=== PATIENT | male | born 1940 | race Caucasian/White ===

== ENCOUNTER 2017-09-12 07:50 | Inpatient (IN) | payer MEDICARE, MEDICAID ==
[2017-09-12] VITALS (11 sets, daily range): BP systolic 112–142; BP diastolic 58–119
[~2017-09-12] VITALS: Ht 180.3 cm; Wt 108.8 kg
[~2017-09-12 07:50] MED LIST: BUPR100T13 PO; CLON-528 PO; CYAN50003 SUBCUT; DABI150C PO; DOCU100C40 PO; FLO0.4C PO; LEVO175T2 PO; MULT-570 PO; [UNRECOGNIZED DRUG - CODE] PO
[2017-09-12 08:37] LABS: BASOPHILS % (AUTO) 0.6 % (0-1); EOSINOPHILS # (AUTO) 0.2 X10'3 (0-0.9); EOSINOPHILS % (AUTO) 2.6 % (0-6); HEMATOCRIT 49.4 % (42.0-52.0); HEMOGLOBIN 17.1 g/dl (14.0-17.9); LYMPHOCYTES # (AUTO) 0.8 X10'3 (1.1-4.8); LYMPHOCYTES % (AUTO) 12.5 % (21-51); MEAN CORPUSCULAR HEMOGLOBIN 33.1 PG (27.0-31.0); MEAN CORPUSCULAR HGB CONC 34.6 % (33.0-36.5); MEAN CORPUSCULAR VOLUME 95.6 FL (78-98); MEAN PLATELET VOLUME 7.3 FL (7.4-10.4); MONOCYTES # (AUTO) 0.5 X10'3 (0-0.9); MONOCYTES % (AUTO) 8.2 % (2-12); NEUTROPHILS % (AUTO) 76.1 % (42-75); PLATELET COUNT 147 X10'3 (140-440); RED BLOOD COUNT 5.17 X10'6 (4.70-6.10); RED CELL DISTRIBUTION WIDTH 15.9 % (11.5-14.5); WHITE BLOOD COUNT 6.6 X10'3 (4.5-11.0)
[2017-09-12] MEDS: nitroGLYCERIN 0.4mg SUBLingual tab SL PRN ×2 (08:38→09:11)
[2017-09-12 08:47] LABS: INR 1.4 INR; PARTIAL THROMBOPLASTIN TIME 35 SECONDS (22-32)
[2017-09-12 08:52] LABS: ALANINE AMINOTRANSFERASE 35 U/L (12-78); ALBUMIN 3.6 G/DL (3.4-5.0); ALBUMIN/GLOBULIN RATIO 1.1 (1.1-1.5); ALKALINE PHOSPHATASE 82 IU/L (46-116); ANION GAP 12 (8-16); ASPARTATE AMINO TRANSFERASE 27 U/L (10-37); BILIRUBIN,TOTAL 1.8 MG/DL (0.1-1.0); BLOOD UREA NITROGEN 13 MG/DL (7-18); BUN/CREATININE RATIO 10.9 (5.4-32.0); CALCIUM 8.2 MG/DL (8.5-10.1); CHLORIDE 103 MMOL/L (99-107); CREATININE 1.19 MG/DL (0.60-1.10); GLUCOSE 160 MG/DL (70-104); SODIUM 138 MMOL/L (135-145); TOTAL PROTEIN 6.8 G/DL (6.4-8.2); eGFR 59 ML/MIN
[2017-09-12] MEDS ORDERED: SILD100T PO (09:20)
[2017-09-12] MEDS ORDERED: OLME5TAB3 PO (09:20)
[2017-09-12] MEDS ORDERED: RIVA20TA PO (09:20)
[2017-09-12] MEDS ORDERED: CHOL200013 (09:20)
[2017-09-12] MEDS ORDERED: DOXA4TAB3 PO (09:20)
[2017-09-12] MEDS ORDERED: HYDROmorphone inj. 0.5 MG/0.5 ML DISP.SYRIN IV PRN ×2 (10:00)
[2017-09-12] MEDS ORDERED: morphine 4 MG/ML inj SYRINge IV PRN ×2 (10:00)
[2017-09-12] MEDS ORDERED: metoclopramide 5 mg/ml inj IV PRN (10:00)
[2017-09-12] MEDS ORDERED: docusate sod 100mg capsule PO PRN (10:00)
[2017-09-12] MEDS ORDERED: acetaminophen 325mg tablet PO PRN ×2 (10:00)
[2017-09-12] MEDS ORDERED: diphenhydrAMINE 25mg capsule PO PRN (10:00)
[2017-09-12] MEDS ORDERED: mag hydrox/Alum hydrox/simeth 30ml oral suspension PO PRN (10:00)
[2017-09-12] MEDS ORDERED: clonazePAM 0.5mg tablet PO PRN (10:00)
[2017-09-12] MEDS ORDERED: acetaminophen 650mg rectal suppository RC PRN (10:00)
[2017-09-12] MEDS ORDERED: diphenhydrAMINE 50 mg/ml inj IV PRN (10:00)
[2017-09-12] MEDS ORDERED: bisacodyl 10mg suppository rectal RC PRN (10:00)
[2017-09-12] MEDS ORDERED: CAFFEINE CITRATE 60 MG/3 ML injection vial IV PRN (10:05)
[2017-09-12] MEDS ORDERED: MESSAGE TO PHARMACY PO ONE (10:05)
[2017-09-12] MEDS ORDERED: regadenoson 0.4mg/5ml syringe IV ONE ×2 (10:05→14:00)
[2017-09-12] MEDS ORDERED: aspirin 81mg tab.chew PO ONE (10:05)
[2017-09-12] MEDS ORDERED: dextrose 50%-water 50ml dispensing syringe IV PRN ×2 (10:05)
[2017-09-12] MEDS ORDERED: metoprolol tartrate 1mg/ml inj IV PRN (10:05)
[2017-09-12] MEDS ORDERED: glucagon, human recombinant 1mg kit SUBCUT PRN (10:05)
[2017-09-12] MEDS ORDERED: dextrose ORAL solution 15 GM/59 ML bottle PO PRN ×2 (10:05)
[2017-09-12 10:21] LABS: CLARITY,URINE CLEAR (Clear); COLOR,URINE YELLOW (Yellow); GLUCOSE, URINE NEGATIVE (Neg); KETONES,URINE NEGATIVE (Neg); LEUKOCYTE ESTERASE ,URINE NEGATIVE (Neg); NITRITES, URINE NEGATIVE (Neg); OCCULT BLOOD,URINE NEGATIVE (Neg); PROTEIN,URINE NEGATIVE (Neg)
[2017-09-12 10:22] LABS: UA COLLECTION TYPE CLN CATCH MIDSTREAM
[2017-09-12 10:31] LABS: D-DIMER < 0.19 MG/L FEU (0-0.50)
[2017-09-12] MEDS: atorvastatin 20mg tablet PO SCH (10:44)
[2017-09-12 13:06] LABS: HEMOGLOBIN A1C 7.4 % (4.5-6.2)
[2017-09-12 13:22] LABS: LIPASE 81 U/L (73-393); MAGNESIUM 1.7 MG/DL (1.5-2.4)
[2017-09-12] MEDS ORDERED: CAFFEINE CITRATE 60 MG/3 ML injection vial IV ONE (14:00)
[2017-09-12] MEDS: docusate sod 100mg capsule PO SCH (20:00)
[2017-09-12] MEDS: insulin Lispro (HumaLOG) vial - multi-dose SQ SCH (20:06)
[2017-09-12] MEDS: furosemide 20 MG/2 ML vial IV SCH ×2 (20:14→20:30)
[2017-09-12] MEDS ORDERED: temazepam 15mg capsule PO PRN (21:00)
[2017-09-13] VITALS: BP 110/79
[2017-09-13 07:10] LABS: BASOPHILS % (AUTO) 0.3 % (0-1); EOSINOPHILS # (AUTO) 0.1 X10'3 (0-0.9); HEMATOCRIT 51.6 % (42.0-52.0); HEMOGLOBIN 17.2 g/dl (14.0-17.9); LYMPHOCYTES # (AUTO) 0.7 X10'3 (1.1-4.8); LYMPHOCYTES % (AUTO) 10.4 % (21-51); MEAN CORPUSCULAR HEMOGLOBIN 32.2 PG (27.0-31.0); MEAN CORPUSCULAR HGB CONC 33.3 % (33.0-36.5); MEAN CORPUSCULAR VOLUME 96.6 FL (78-98); MEAN PLATELET VOLUME 7.8 FL (7.4-10.4); MONOCYTES # (AUTO) 0.5 X10'3 (0-0.9); MONOCYTES % (AUTO) 6.6 % (2-12); NEUTROPHILS # (AUTO) 5.8 X10'3 (1.8-7.7); NEUTROPHILS % (AUTO) 80.7 % (42-75); PLATELET COUNT 159 X10'3 (140-440); RED BLOOD COUNT 5.34 X10'6 (4.70-6.10); WHITE BLOOD COUNT 7.2 X10'3 (4.5-11.0)
[2017-09-13 07:31] LABS: ALANINE AMINOTRANSFERASE 36 U/L (12-78); ALBUMIN 3.5 G/DL (3.4-5.0); ALBUMIN/GLOBULIN RATIO 1.1 (1.1-1.5); ALKALINE PHOSPHATASE 89 IU/L (46-116); ANION GAP 12 (8-16); ASPARTATE AMINO TRANSFERASE 23 U/L (10-37); BILIRUBIN,TOTAL 2.4 MG/DL (0.1-1.0); BLOOD UREA NITROGEN 14 MG/DL (7-18); BUN/CREATININE RATIO 12.7 (5.4-32.0); CALCIUM 8.7 MG/DL (8.5-10.1); CHLORIDE 102 MMOL/L (99-107); CHOL/HDL RATIO 3.8 (0.00-4.99); CHOLESTEROL 142 MG/DL (0-200); GLUCOSE 138 MG/DL (70-104); HDL CHOLESTEROL 37 MG/DL (35-60); LDL CHOLESTEROL 103 MG/DL (50-100); POTASSIUM 3.8 MMOL/L (3.5-5.1); SODIUM 138 MMOL/L (135-145); TOTAL CARBON DIOXIDE 24.4 MMOL/L (24-32); TOTAL PROTEIN 6.6 G/DL (6.4-8.2); TRIGLYCERIDES 73 MG/DL (20-135); eGFR 65 ML/MIN
[2017-09-13] MEDS: levoTHYROXINE 175mcg tablet PO SCH (07:51)
[2017-09-13] MEDS: atorvastatin 20mg tablet PO SCH (07:51)
[2017-09-13] MEDS: pantoprazole 40mg Tablet.DR PO SCH (07:51)
[2017-09-13] MEDS: docusate sod 100mg capsule PO SCH ×2 (07:51→20:10)
[2017-09-13] MEDS: furosemide 20 MG/2 ML vial IV SCH ×2 (07:51→20:09)
[2017-09-13 08:01] VITALS: BP 157/89
[2017-09-13] MEDS: insulin Lispro (HumaLOG) vial - multi-dose SQ SCH ×3 (09:02→19:00)
[2017-09-13 15:33] VITALS: BP 133/83
[2017-09-13 19:30] VITALS: BP 150/84
[2017-09-13] MEDS ORDERED: carVEDilol 3.125mg tablet PO SCH (20:00)
[2017-09-13] MEDS ORDERED: rivaroxaban 20mg tablet PO SCH (21:00)
[2017-09-13] MEDS: doxazosin mesylate 2mg tablet PO SCH (21:46)
[2017-09-13 22:25] VITALS: BP 137/77
[2017-09-13] MEDS: nitroGLYCERIN 0.4mg SUBLingual tab SL PRN (22:29)
[2017-09-13] MEDS: HYDROcodone/acetaminophen 10/325mg tab PO PRN (22:34)
[2017-09-14] VITALS (23 sets, daily range): BP systolic 101–177; BP diastolic 62–92
[2017-09-14] MEDS ORDERED: atropine 1 MG/1 ML vial IV ONE (03:05)
[2017-09-14 03:06] LABS: ABG BASE EXCESS 1.4 mmol/L (-2.0-3.0); ABG HCO3 24.5 mmol/L (22.0-26.0); ABG OXYGEN SATURATION 95.9 % (95-98); ABG PCO2 (T) 34.1 mmHg (35.0-48.0); ABG PH (T) 7.472 (7.350-7.450); ABG PO2 (T) 76.5 mmHg (83-108); ALLEN'S TEST Positive; FCOHb 0.3 % (0.5-1.5); FLOW 2 L/min; FMetHb 0.4 % (0.3-1.12); FO2Hb 95.2 % (94-100); PATIENT TEMPERATURE 36.4; RESPIRATORY RATE (OBSERVED) 18 b/min; TOTAL HEMOGLOBIN 19.3 G/dl (14.0-18.0)
[2017-09-14 03:10] LABS: BASOPHILS % (AUTO) 0.3 % (0-1); EOSINOPHILS # (AUTO) 0.1 X10'3 (0-0.9); EOSINOPHILS % (AUTO) 1.7 % (0-6); LYMPHOCYTES # (AUTO) 0.9 X10'3 (1.1-4.8); LYMPHOCYTES % (AUTO) 10.9 % (21-51); MEAN CORPUSCULAR HEMOGLOBIN 32.6 PG (27.0-31.0); MEAN CORPUSCULAR HGB CONC 33.9 % (33.0-36.5); MEAN CORPUSCULAR VOLUME 96.1 FL (78-98); MEAN PLATELET VOLUME 7.3 FL (7.4-10.4); MONOCYTES # (AUTO) 0.6 X10'3 (0-0.9); MONOCYTES % (AUTO) 6.8 % (2-12); NEUTROPHILS % (AUTO) 80.3 % (42-75); PLATELET COUNT 176 X10'3 (140-440); RED BLOOD COUNT 5.52 X10'6 (4.70-6.10); RED CELL DISTRIBUTION WIDTH 15.6 % (11.5-14.5); WHITE BLOOD COUNT 8.7 X10'3 (4.5-11.0)
[2017-09-14 03:22] LABS: INR 1.3 INR; PARTIAL THROMBOPLASTIN TIME 27 SECONDS (22-32)
[2017-09-14] MEDS ORDERED: DOPamine 400mg/D5W 250ml 250 ML IV ONE (03:24)
[2017-09-14 03:28] LABS: ALBUMIN 3.6 G/DL (3.4-5.0); ANION GAP 9 (8-16); BLOOD UREA NITROGEN 20 MG/DL (7-18); BUN/CREATININE RATIO 14.3 (5.4-32.0); CALCIUM 8.7 MG/DL (8.5-10.1); CHLORIDE 100 MMOL/L (99-107); GLUCOSE 160 MG/DL (70-104); PHOSPHORUS 3.4 MG/DL (2.3-4.5); POTASSIUM 3.5 MMOL/L (3.5-5.1); SODIUM 137 MMOL/L (135-145); TOTAL CARBON DIOXIDE 27.6 MMOL/L (24-32); TROPONIN I < 0.04 NG/ML (0.0-0.05); eGFR 49 ML/MIN
[2017-09-14] MEDS ORDERED: cyclobenzaprine 10mg tablet PO PRN (04:05)
[2017-09-14] MEDS: aspirin 81mg tab.chew PO SCH (07:55)
[2017-09-14] MEDS: atorvastatin 20mg tablet PO SCH (07:55)
[2017-09-14] MEDS: pantoprazole 40mg Tablet.DR PO SCH (07:55)
[2017-09-14] MEDS: furosemide 20 MG/2 ML vial IV SCH (07:55)
[2017-09-14] MEDS: docusate sod 100mg capsule PO SCH ×2 (07:55→20:44)
[2017-09-14] MEDS ORDERED: atropine 0.1 mg/ml 5ml syringe ONE (08:00)
[2017-09-14] MEDS ORDERED: non-formulary drug (Doxazosin Mesylate 1 TAB) PO SCH (08:00)
[2017-09-14] MEDS: losartan 50mg tablet PO SCH (08:00)
[2017-09-14] MEDS ORDERED: OLMESARTAN MEDOXOMIL 40 MG PO SCH (08:00)
[2017-09-14] MEDS: levoTHYROXINE 175mcg tablet PO SCH (09:03)
[2017-09-14] MEDS: insulin Lispro (HumaLOG) vial - multi-dose SQ SCH ×3 (09:07→20:48)
[2017-09-14] MEDS ORDERED: potassium Cl 20 mEq SR tablet PO STA (12:22)
[2017-09-14] MEDS: ondansetron/PF 4mg/2ml inj IV PRN ×2 (12:33→21:54)
[2017-09-14 12:59] LABS: MAGNESIUM 1.6 MG/DL (1.5-2.4)
[2017-09-14] MEDS: HYDROcodone/acetaminophen 10/325mg tab PO PRN (13:16)
[2017-09-14] MEDS ORDERED: magnesium 4gm in 100ml NS 100 ML IV PRN (16:40)
[2017-09-14] MEDS ORDERED: magnesium/D5W IVPB 100 ML IV PRN (16:40)
[2017-09-14] MEDS: doxazosin mesylate 2mg tablet PO SCH (20:44)
[2017-09-15] VITALS (25 sets, daily range): BP systolic 90–167; BP diastolic 61–100
[2017-09-15] MEDS: HYDROcodone/acetaminophen 10/325mg tab PO PRN (01:18)
[2017-09-15 03:35] LABS: BASOPHILS % (AUTO) 0.2 % (0-1); EOSINOPHILS # (AUTO) 0.1 X10'3 (0-0.9); EOSINOPHILS % (AUTO) 1.3 % (0-6); HEMATOCRIT 54.8 % (42.0-52.0); LYMPHOCYTES # (AUTO) 0.8 X10'3 (1.1-4.8); LYMPHOCYTES % (AUTO) 7.9 % (21-51); MEAN CORPUSCULAR HEMOGLOBIN 32.8 PG (27.0-31.0); MEAN CORPUSCULAR HGB CONC 34.2 % (33.0-36.5); MEAN CORPUSCULAR VOLUME 95.8 FL (78-98); MEAN PLATELET VOLUME 7.1 FL (7.4-10.4); MONOCYTES # (AUTO) 0.7 X10'3 (0-0.9); MONOCYTES % (AUTO) 6.3 % (2-12); NEUTROPHILS # (AUTO) 8.9 X10'3 (1.8-7.7); NEUTROPHILS % (AUTO) 84.3 % (42-75); PLATELET COUNT 179 X10'3 (140-440); RED BLOOD COUNT 5.72 X10'6 (4.70-6.10); RED CELL DISTRIBUTION WIDTH 15.5 % (11.5-14.5); WHITE BLOOD COUNT 10.5 X10'3 (4.5-11.0)
[2017-09-15 03:38] LABS: HEMOGLOBIN 18.8 g/dl (14.0-17.9)
[2017-09-15 03:49] LABS: ALANINE AMINOTRANSFERASE 27 U/L (12-78); ALBUMIN 3.6 G/DL (3.4-5.0); ALKALINE PHOSPHATASE 102 IU/L (46-116); ANION GAP 7 (8-16); ASPARTATE AMINO TRANSFERASE 16 U/L (10-37); BILIRUBIN,TOTAL 3.2 MG/DL (0.1-1.0); BLOOD UREA NITROGEN 17 MG/DL (7-18); BUN/CREATININE RATIO 12.1 (5.4-32.0); CALCIUM 9.1 MG/DL (8.5-10.1); CHLORIDE 97 MMOL/L (99-107); GLUCOSE 271 MG/DL (70-104); MAGNESIUM 1.7 MG/DL (1.5-2.4); PHOSPHORUS 3.5 MG/DL (2.3-4.5); POTASSIUM 3.6 MMOL/L (3.5-5.1); SODIUM 134 MMOL/L (135-145); TOTAL PROTEIN 7.1 G/DL (6.4-8.2); eGFR 49 ML/MIN
[2017-09-15] MEDS ORDERED: normal saline 500ml IV soln 500 ML IV ONE (04:35)
[2017-09-15] MEDS: normal saline 1000ml 1,000 ML IV SCH ×2 (04:53→17:56)
[2017-09-15] MEDS: DOPamine 400mg/D5W 250ml 250 ML IV PRN ×2 (05:23→15:36)
[2017-09-15] MEDS ORDERED: magnesium 4gm in 100ml NS 100 ML IV ONE (05:55)
[2017-09-15] MEDS: atorvastatin 20mg tablet PO SCH (07:21)
[2017-09-15] MEDS: losartan 50mg tablet PO SCH (07:21)
[2017-09-15] MEDS: docusate sod 100mg capsule PO SCH ×2 (07:21→20:14)
[2017-09-15] MEDS: pantoprazole 40mg Tablet.DR PO SCH (07:21)
[2017-09-15] MEDS: aspirin 81mg tab.chew PO SCH (07:30)
[2017-09-15] MEDS: levoTHYROXINE 175mcg tablet PO SCH (07:31)
[2017-09-15] MEDS: insulin Lispro (HumaLOG) vial - multi-dose SQ SCH ×3 (08:54→21:45)
[2017-09-15] MEDS ORDERED: iohexol 350MG/ML 100ml bottle IV ONE (15:59)
[2017-09-15] MEDS ORDERED: LIDOcaine 1% w/EPI 1:100,000 30ml vial (MDV) ONE (15:59)
[2017-09-15] MEDS ORDERED: fentaNYL/PF 50MCG/1 ML 2ML syringe ONE (16:32)
[2017-09-15] MEDS ORDERED: diphenhydrAMINE 50 mg/ml inj ONE (16:32)
[2017-09-15] MEDS ORDERED: midazolam 2 mg/2 ml injection ONE (16:32)
[2017-09-15] MEDS ORDERED: OXAZEpam 15mg capsule PO PRN (17:35)
[2017-09-15] MEDS ORDERED: proCHLORperazine 10 MG/2 ml inj IV PRN (17:35)
[2017-09-15] MEDS ORDERED: normal saline 1000ml 1,000 ML IV SCH (17:35)
[2017-09-15] MEDS: doxazosin mesylate 2mg tablet PO SCH (20:14)
[2017-09-16] VITALS (40 sets, daily range): BP systolic 81–176; BP diastolic 54–91
[2017-09-16] MEDS: DOPamine 400mg/D5W 250ml 250 ML IV PRN (00:28)
[2017-09-16] MEDS: HYDROcodone/acetaminophen 5mg/325mg tablet PO PRN (02:22)
[2017-09-16 03:14] LABS: BASOPHILS % (AUTO) 0.2 % (0-1); EOSINOPHILS # (AUTO) 0.2 X10'3 (0-0.9); HEMATOCRIT 52.6 % (42.0-52.0); HEMOGLOBIN 17.7 g/dl (14.0-17.9); LYMPHOCYTES # (AUTO) 0.7 X10'3 (1.1-4.8); LYMPHOCYTES % (AUTO) 8.2 % (21-51); MEAN CORPUSCULAR HEMOGLOBIN 32.6 PG (27.0-31.0); MEAN CORPUSCULAR HGB CONC 33.6 % (33.0-36.5); MEAN CORPUSCULAR VOLUME 96.9 FL (78-98); MEAN PLATELET VOLUME 7.6 FL (7.4-10.4); MONOCYTES # (AUTO) 0.6 X10'3 (0-0.9); NEUTROPHILS # (AUTO) 7.2 X10'3 (1.8-7.7); NEUTROPHILS % (AUTO) 82.6 % (42-75); PLATELET COUNT 179 X10'3 (140-440); RED BLOOD COUNT 5.43 X10'6 (4.70-6.10); RED CELL DISTRIBUTION WIDTH 15.8 % (11.5-14.5); WHITE BLOOD COUNT 8.8 X10'3 (4.5-11.0)
[2017-09-16 03:30] LABS: ALANINE AMINOTRANSFERASE 23 U/L (12-78); ALBUMIN/GLOBULIN RATIO 0.9 (1.1-1.5); ALKALINE PHOSPHATASE 86 IU/L (46-116); ANION GAP 8 (8-16); ASPARTATE AMINO TRANSFERASE 15 U/L (10-37); BILIRUBIN,TOTAL 2.5 MG/DL (0.1-1.0); BLOOD UREA NITROGEN 17 MG/DL (7-18); BUN/CREATININE RATIO 15.2 (5.4-32.0); CALCIUM 8.3 MG/DL (8.5-10.1); CHLORIDE 100 MMOL/L (99-107); CHOL/HDL RATIO 2.6 (0.00-4.99); CHOLESTEROL 98 MG/DL (0-200); CREATININE 1.12 MG/DL (0.60-1.10); GLUCOSE 214 MG/DL (70-104); HDL CHOLESTEROL 38 MG/DL (35-60); LDL CHOLESTEROL 66 MG/DL (50-100); POTASSIUM 3.6 MMOL/L (3.5-5.1); SODIUM 136 MMOL/L (135-145); TOTAL CARBON DIOXIDE 28.3 MMOL/L (24-32); TOTAL PROTEIN 6.4 G/DL (6.4-8.2); TRIGLYCERIDES 65 MG/DL (20-135); eGFR 63 ML/MIN
[2017-09-16 03:56] LABS: MAGNESIUM 1.8 MG/DL (1.5-2.4); PHOSPHORUS 3.5 MG/DL (2.3-4.5)
[2017-09-16] MEDS ORDERED: potassium Cl 20 mEq SR tablet PO STA (07:13)
[2017-09-16] MEDS: pantoprazole 40mg Tablet.DR PO SCH (07:48)
[2017-09-16] MEDS: docusate sod 100mg capsule PO SCH ×2 (07:48→20:18)
[2017-09-16] MEDS: levoTHYROXINE 175mcg tablet PO SCH (07:48)
[2017-09-16] MEDS: atorvastatin 20mg tablet PO SCH (07:48)
[2017-09-16] MEDS: aspirin 81mg tab.chew PO SCH (07:48)
[2017-09-16] MEDS: losartan 50mg tablet PO SCH (07:49)
[2017-09-16] MEDS: insulin Lispro (HumaLOG) vial - multi-dose SQ SCH ×2 (09:04→19:07)
[2017-09-16] MEDS: doxazosin mesylate 2mg tablet PO SCH ×2 (20:21→20:48)
[2017-09-16] MEDS: insulin glargine (Lantus) pen - multi-dose SQ SCH (20:51)
[2017-09-17] VITALS (15 sets, daily range): BP systolic 94–149; BP diastolic 57–90
[2017-09-17 03:45] LABS: BASOPHILS % (AUTO) 0.1 % (0-1); EOSINOPHILS # (AUTO) 0.2 X10'3 (0-0.9); EOSINOPHILS % (AUTO) 1.5 % (0-6); HEMATOCRIT 48.8 % (42.0-52.0); HEMOGLOBIN 16.8 g/dl (14.0-17.9); LYMPHOCYTES # (AUTO) 0.7 X10'3 (1.1-4.8); LYMPHOCYTES % (AUTO) 6.6 % (21-51); MEAN CORPUSCULAR HEMOGLOBIN 33.1 PG (27.0-31.0); MEAN CORPUSCULAR HGB CONC 34.3 % (33.0-36.5); MEAN CORPUSCULAR VOLUME 96.3 FL (78-98); MEAN PLATELET VOLUME 7.1 FL (7.4-10.4); MONOCYTES # (AUTO) 0.7 X10'3 (0-0.9); MONOCYTES % (AUTO) 6.7 % (2-12); NEUTROPHILS # (AUTO) 8.6 X10'3 (1.8-7.7); NEUTROPHILS % (AUTO) 85.1 % (42-75); PLATELET COUNT 162 X10'3 (140-440); RED BLOOD COUNT 5.07 X10'6 (4.70-6.10); RED CELL DISTRIBUTION WIDTH 15.6 % (11.5-14.5); WHITE BLOOD COUNT 10.1 X10'3 (4.5-11.0)
[2017-09-17 04:07] LABS: ALANINE AMINOTRANSFERASE 24 U/L (12-78); ALBUMIN 3.1 G/DL (3.4-5.0); ALBUMIN/GLOBULIN RATIO 1.1 (1.1-1.5); ALKALINE PHOSPHATASE 78 IU/L (46-116); ANION GAP 6 (8-16); ASPARTATE AMINO TRANSFERASE 14 U/L (10-37); BILIRUBIN,TOTAL 1.8 MG/DL (0.1-1.0); BLOOD UREA NITROGEN 20 MG/DL (7-18); BUN/CREATININE RATIO 16.5 (5.4-32.0); CALCIUM 8.5 MG/DL (8.5-10.1); CHLORIDE 103 MMOL/L (99-107); CREATININE 1.21 MG/DL (0.60-1.10); GLUCOSE 91 MG/DL (70-104); POTASSIUM 3.6 MMOL/L (3.5-5.1); SODIUM 139 MMOL/L (135-145); TOTAL CARBON DIOXIDE 29.6 MMOL/L (24-32); eGFR 58 ML/MIN
[2017-09-17] MEDS: pantoprazole 40mg Tablet.DR PO SCH (08:14)
[2017-09-17] MEDS: aspirin 81mg tab.chew PO SCH (08:14)
[2017-09-17] MEDS: levoTHYROXINE 175mcg tablet PO SCH (08:14)
[2017-09-17] MEDS: atorvastatin 20mg tablet PO SCH (08:14)
[2017-09-17] MEDS: losartan 50mg tablet PO SCH (08:14)
[2017-09-17] MEDS: docusate sod 100mg capsule PO SCH ×2 (08:14→19:49)
[2017-09-17] MEDS: insulin Lispro (HumaLOG) vial - multi-dose SQ SCH ×2 (14:06→19:53)
[2017-09-17] MEDS: polyvinyl alcohol ophthalmic drops 15ml bottle EACHEYE PRN (14:54)
[2017-09-17] MEDS: magnesium hydroxide 30ml (MOM) UD suspension PO PRN (16:16)
[2017-09-17] MEDS: doxazosin mesylate 2mg tablet PO SCH (20:01)
[2017-09-17] MEDS: insulin glargine (Lantus) pen - multi-dose SQ SCH (21:00)
[2017-09-17] MEDS: HYDROcodone/acetaminophen 5mg/325mg tablet PO PRN (22:11)
[2017-09-18 03:00] VITALS: BP 154/83
[2017-09-18 06:00] VITALS: BP 154/89
[2017-09-18] MEDS: aspirin 81mg tab.chew PO SCH (08:01)
[2017-09-18] MEDS: levoTHYROXINE 175mcg tablet PO SCH (08:01)
[2017-09-18] MEDS: polyvinyl alcohol ophthalmic drops 15ml bottle EACHEYE PRN ×2 (08:01→21:48)
[2017-09-18] MEDS: docusate sod 100mg capsule PO SCH ×2 (08:01→19:40)
[2017-09-18] MEDS: pantoprazole 40mg Tablet.DR PO SCH (08:01)
[2017-09-18] MEDS: losartan 50mg tablet PO SCH (08:02)
[2017-09-18] MEDS: atorvastatin 20mg tablet PO SCH (08:02)
[2017-09-18] MEDS: insulin Lispro (HumaLOG) vial - multi-dose SQ SCH ×3 (08:09→19:46)
[2017-09-18] MEDS: magnesium hydroxide 30ml (MOM) UD suspension PO PRN (10:34)
[2017-09-18 11:00] VITALS: BP 126/89
[2017-09-18 15:00] VITALS: BP 135/82
[2017-09-18] MEDS: insulin glargine (Lantus) pen - multi-dose SQ SCH (21:00)
[2017-09-18] MEDS: rivaroxaban 20mg tablet PO SCH (21:21)
[2017-09-18] MEDS: doxazosin mesylate 2mg tablet PO SCH (21:22)
[2017-09-19 06:00] VITALS: BP 144/90
[2017-09-19] MEDS: docusate sod 100mg capsule PO SCH ×2 (07:24→19:30)
[2017-09-19] MEDS: polyvinyl alcohol ophthalmic drops 15ml bottle EACHEYE PRN (07:24)
[2017-09-19] MEDS: pantoprazole 40mg Tablet.DR PO SCH (07:24)
[2017-09-19] MEDS: levoTHYROXINE 175mcg tablet PO SCH (07:24)
[2017-09-19] MEDS: losartan 50mg tablet PO SCH (07:24)
[2017-09-19] MEDS: atorvastatin 20mg tablet PO SCH (07:24)
[2017-09-19] MEDS: aspirin 81mg tab.chew PO SCH (08:25)
[2017-09-19] MEDS: insulin Lispro (HumaLOG) vial - multi-dose SQ SCH ×3 (08:27→19:30)
[2017-09-19 09:08] LABS: BASOPHILS % (AUTO) 0.3 % (0-1); EOSINOPHILS # (AUTO) 0.1 X10'3 (0-0.9); HEMATOCRIT 52.7 % (42.0-52.0); HEMOGLOBIN 17.5 g/dl (14.0-17.9); LYMPHOCYTES # (AUTO) 0.7 X10'3 (1.1-4.8); LYMPHOCYTES % (AUTO) 10.9 % (21-51); MEAN CORPUSCULAR HEMOGLOBIN 31.8 PG (27.0-31.0); MEAN CORPUSCULAR HGB CONC 33.3 % (33.0-36.5); MEAN CORPUSCULAR VOLUME 95.7 FL (78-98); MEAN PLATELET VOLUME 7.4 FL (7.4-10.4); MONOCYTES # (AUTO) 0.4 X10'3 (0-0.9); MONOCYTES % (AUTO) 6.5 % (2-12); NEUTROPHILS # (AUTO) 5.3 X10'3 (1.8-7.7); NEUTROPHILS % (AUTO) 80.3 % (42-75); PLATELET COUNT 171 X10'3 (140-440); RED BLOOD COUNT 5.51 X10'6 (4.70-6.10); RED CELL DISTRIBUTION WIDTH 15.8 % (11.5-14.5); WHITE BLOOD COUNT 6.7 X10'3 (4.5-11.0)
[2017-09-19 09:24] LABS: ALANINE AMINOTRANSFERASE 31 U/L (12-78); ALBUMIN 3.4 G/DL (3.4-5.0); ALKALINE PHOSPHATASE 95 IU/L (46-116); ANION GAP 6 (8-16); ASPARTATE AMINO TRANSFERASE 23 U/L (10-37); BILIRUBIN,TOTAL 1.5 MG/DL (0.1-1.0); BLOOD UREA NITROGEN 22 MG/DL (7-18); BUN/CREATININE RATIO 17.1 (5.4-32.0); CALCIUM 9.2 MG/DL (8.5-10.1); CHLORIDE 99 MMOL/L (99-107); CREATININE 1.29 MG/DL (0.60-1.10); GLUCOSE 202 MG/DL (70-104); POTASSIUM 4.3 MMOL/L (3.5-5.1); SODIUM 135 MMOL/L (135-145); TOTAL CARBON DIOXIDE 30.3 MMOL/L (24-32); TOTAL PROTEIN 6.7 G/DL (6.4-8.2); eGFR 54 ML/MIN
[2017-09-19 11:00] VITALS: BP 133/76
[2017-09-19 15:00] VITALS: BP 119/77
[2017-09-19 19:00] VITALS: BP 117/92
[2017-09-19] MEDS: insulin glargine (Lantus) pen - multi-dose SQ SCH (21:00)
[2017-09-19] MEDS: rivaroxaban 20mg tablet PO SCH (21:14)
[2017-09-19] MEDS: doxazosin mesylate 2mg tablet PO SCH (21:15)
[2017-09-19 23:00] VITALS: BP 139/76
[2017-09-20 03:00] VITALS: BP 147/87
[2017-09-20 06:00] VITALS: BP 149/92
[2017-09-20 06:45] LABS: BASOPHILS % (AUTO) 0.1 % (0-1); EOSINOPHILS # (AUTO) 0.2 X10'3 (0-0.9); EOSINOPHILS % (AUTO) 2.5 % (0-6); HEMATOCRIT 51.9 % (42.0-52.0); HEMOGLOBIN 17.7 g/dl (14.0-17.9); LYMPHOCYTES # (AUTO) 0.9 X10'3 (1.1-4.8); LYMPHOCYTES % (AUTO) 10.9 % (21-51); MEAN CORPUSCULAR HEMOGLOBIN 32.4 PG (27.0-31.0); MEAN CORPUSCULAR HGB CONC 34.1 % (33.0-36.5); MEAN PLATELET VOLUME 7.2 FL (7.4-10.4); MONOCYTES # (AUTO) 0.6 X10'3 (0-0.9); MONOCYTES % (AUTO) 7.5 % (2-12); NEUTROPHILS # (AUTO) 6.4 X10'3 (1.8-7.7); PLATELET COUNT 178 X10'3 (140-440); RED BLOOD COUNT 5.47 X10'6 (4.70-6.10); RED CELL DISTRIBUTION WIDTH 15.6 % (11.5-14.5); WHITE BLOOD COUNT 8.1 X10'3 (4.5-11.0)
[2017-09-20 07:00] LABS: ALANINE AMINOTRANSFERASE 38 U/L (12-78); ALBUMIN 3.4 G/DL (3.4-5.0); ALKALINE PHOSPHATASE 96 IU/L (46-116); ANION GAP 9 (8-16); ASPARTATE AMINO TRANSFERASE 26 U/L (10-37); BILIRUBIN,TOTAL 1.8 MG/DL (0.1-1.0); BLOOD UREA NITROGEN 22 MG/DL (7-18); BUN/CREATININE RATIO 17.3 (5.4-32.0); CALCIUM 9.1 MG/DL (8.5-10.1); CHLORIDE 103 MMOL/L (99-107); CREATININE 1.27 MG/DL (0.60-1.10); GLUCOSE 120 MG/DL (70-104); MAGNESIUM 1.8 MG/DL (1.5-2.4); POTASSIUM 4.2 MMOL/L (3.5-5.1); SODIUM 139 MMOL/L (135-145); TOTAL CARBON DIOXIDE 27.2 MMOL/L (24-32); TOTAL PROTEIN 6.7 G/DL (6.4-8.2); eGFR 55 ML/MIN
[2017-09-20] MEDS: atorvastatin 20mg tablet PO SCH (07:53)
[2017-09-20] MEDS: docusate sod 100mg capsule PO SCH ×2 (07:53→20:11)
[2017-09-20] MEDS: levoTHYROXINE 175mcg tablet PO SCH (07:53)
[2017-09-20] MEDS: aspirin 81mg tab.chew PO SCH (07:53)
[2017-09-20] MEDS: losartan 50mg tablet PO SCH (07:53)
[2017-09-20] MEDS: pantoprazole 40mg Tablet.DR PO SCH (07:53)
[2017-09-20] MEDS: insulin Lispro (HumaLOG) vial - multi-dose SQ SCH ×2 (08:00→14:03)
[2017-09-20 11:00] VITALS: BP 132/94
[2017-09-20 15:00] VITALS: BP 130/79
[2017-09-20 19:00] VITALS: BP 132/89
[2017-09-20] MEDS: doxazosin mesylate 2mg tablet PO SCH (20:12)
[2017-09-20] MEDS: rivaroxaban 20mg tablet PO SCH (20:12)
[2017-09-20] MEDS: insulin glargine (Lantus) pen - multi-dose SQ SCH (21:00)
[2017-09-20 23:00] VITALS: BP 134/90
[2017-09-21 05:30] LABS: BASOPHILS % (AUTO) 0.4 % (0-1); EOSINOPHILS # (AUTO) 0.2 X10'3 (0-0.9); EOSINOPHILS % (AUTO) 2.8 % (0-6); HEMATOCRIT 50.4 % (42.0-52.0); HEMOGLOBIN 17.3 g/dl (14.0-17.9); LYMPHOCYTES # (AUTO) 0.9 X10'3 (1.1-4.8); LYMPHOCYTES % (AUTO) 11.3 % (21-51); MEAN CORPUSCULAR HEMOGLOBIN 32.5 PG (27.0-31.0); MEAN CORPUSCULAR HGB CONC 34.3 % (33.0-36.5); MEAN CORPUSCULAR VOLUME 94.9 FL (78-98); MEAN PLATELET VOLUME 7.9 FL (7.4-10.4); MONOCYTES # (AUTO) 0.7 X10'3 (0-0.9); MONOCYTES % (AUTO) 8.5 % (2-12); NEUTROPHILS # (AUTO) 6.1 X10'3 (1.8-7.7); PLATELET COUNT 169 X10'3 (140-440); RED BLOOD COUNT 5.32 X10'6 (4.70-6.10); RED CELL DISTRIBUTION WIDTH 15.7 % (11.5-14.5); WHITE BLOOD COUNT 7.9 X10'3 (4.5-11.0)
[2017-09-21 05:43] LABS: ALANINE AMINOTRANSFERASE 32 U/L (12-78); ALBUMIN 3.4 G/DL (3.4-5.0); ALKALINE PHOSPHATASE 96 IU/L (46-116); ANION GAP 8 (8-16); ASPARTATE AMINO TRANSFERASE 25 U/L (10-37); BILIRUBIN,TOTAL 1.9 MG/DL (0.1-1.0); BLOOD UREA NITROGEN 23 MG/DL (7-18); BUN/CREATININE RATIO 19.3 (5.4-32.0); CALCIUM 8.9 MG/DL (8.5-10.1); CHLORIDE 102 MMOL/L (99-107); CREATININE 1.19 MG/DL (0.60-1.10); GLUCOSE 122 MG/DL (70-104); MAGNESIUM 1.8 MG/DL (1.5-2.4); POTASSIUM 4.2 MMOL/L (3.5-5.1); SODIUM 139 MMOL/L (135-145); TOTAL PROTEIN 6.8 G/DL (6.4-8.2); eGFR 59 ML/MIN
[2017-09-21 06:00] VITALS: BP 132/89
[2017-09-21] MEDS: aspirin 81mg tab.chew PO SCH (08:06)
[2017-09-21] MEDS: losartan 50mg tablet PO SCH (08:06)
[2017-09-21] MEDS: levoTHYROXINE 175mcg tablet PO SCH (08:06)
[2017-09-21] MEDS: atorvastatin 20mg tablet PO SCH (08:06)
[2017-09-21] MEDS: docusate sod 100mg capsule PO SCH (08:06)
[2017-09-21] MEDS: pantoprazole 40mg Tablet.DR PO SCH (08:06)
[2017-09-21] MEDS: insulin Lispro (HumaLOG) vial - multi-dose SQ SCH (08:13)
[2017-09-21] MEDS ORDERED: ATOR20TA66 PO (09:17)
[2017-09-21] MEDS ORDERED: NITR0.4T51 SL (09:17)
[2017-09-21 11:00] VITALS: BP 119/81
[2017-09-21] MEDS: nitroGLYCERIN 0.4mg SUBLingual tab SL PRN (11:54)
== END 2017-09-21 12:20 | disposition home health service (06) | DRG 286 ==
LOC: ER 07:51 → ED HOLD 09:57 → EDBEDREQ 16:10 → SUR 3N 16:34 → ICU 2S 09-14 03:36 → PCU 3S 09-17 13:27
PROVIDERS: ADMIT Family Medicine; ATTEND Internal Medicine Critical Care Medicine
PROC: 3E073KZ Introduction of Other Diagnostic Substance into Coronary Artery, Percutaneous Approach (ICD-10-PCS; 2017-09-12)
PROC: 4A02XM4 Measurement of Cardiac Total Activity, External Approach (ICD-10-PCS; 2017-09-12)
PROC: 02HV33Z Insertion of Infusion Device into Superior Vena Cava, Percutaneous Approach (ICD-10-PCS; 2017-09-14)
PROC: B548ZZA Ultrasonography of Superior Vena Cava, Guidance (ICD-10-PCS; 2017-09-14)
PROC: 4A023N7 Measurement of Cardiac Sampling and Pressure, Left Heart, Percutaneous Approach (ICD-10-PCS; principal; 2017-09-15)
PROC: B2111ZZ Fluoroscopy of Multiple Coronary Arteries using Low Osmolar Contrast (ICD-10-PCS; 2017-09-15)
PROC: B2151ZZ Fluoroscopy of Left Heart using Low Osmolar Contrast (ICD-10-PCS; 2017-09-15)
DX: I48.91 Unspecified atrial fibrillation (principal); I50.33 Acute on chronic diastolic (congestive) heart failure; R00.1 Bradycardia, unspecified; E11.9 Type 2 diabetes mellitus without complications; I44.7 Left bundle-branch block, unspecified; I42.9 Cardiomyopathy, unspecified; E03.9 Hypothyroidism, unspecified; G89.29 Other chronic pain; M54.9 Dorsalgia, unspecified; I11.0 Hypertensive heart disease with heart failure; I25.10 Atherosclerotic heart disease of native coronary artery without angina pectoris; Z60.2 Problems related to living alone; Z90.49 Acquired absence of other specified parts of digestive tract; Z88.0 Allergy status to penicillin; Z79.899 Other long term (current) drug therapy; Z79.01 Long term (current) use of anticoagulants; Z87.891 Personal history of nicotine dependence; Z82.49 Family history of ischemic heart disease and other diseases of the circulatory system
CPT/HCPCS: 36415; 36569; 36600; 71045; 76937; 78452; 80048; 80053; 80061; 81003; 82803; 82948; 83036; 83605; 83690; 83735; 83880; 84100; 84443; 84484; 85018; 85025; 85379; 85610; 85730; 87070; 93005; 93017; 93306; 93458; 93880; 97110; 97116; 97162; 97530; 99152; 99285; A4620; A6213; A6257; A9500; C1769; J0461; J1200; J1265; J1644; J1815; J1940; J2250; J2405; J3010; J3475; J3490; J7030; Q9967

== ENCOUNTER 2021-08-21 13:04 | Outpatient (CLI) | payer OTHER ==
[~2021-08-21 13:04] MED LIST changes: +ATOR20TA66 PO; -BUPR100T13 PO; +CHOL200013; -CYAN50003 SUBCUT; -DABI150C PO; -DOCU100C40 PO; +DOXA4TAB3 PO; -FLO0.4C PO; -MULT-570 PO; +NITR0.4T51 SL; +OLME5TAB3 PO; +RIVA20TA PO; -[UNRECOGNIZED DRUG - CODE] PO
== END 2021-08-21 23:59 | disposition home or self-care (01) ==
LOC: CARD DIAG 13:04
PROVIDERS: ATTEND Chiropractor
DX: I08.3 Combined rheumatic disorders of mitral, aortic and tricuspid valves (principal); I50.9 Heart failure, unspecified
CPT/HCPCS: 93306